=== PATIENT | male | born 1985 | race Caucasian/White ===

== ENCOUNTER 2016-10-01 13:34 | Emergency (ER) | payer OTHER, BC ==
[2016-10-01 13:48] VITALS: BP 125/81; PULSE 64; TEMP 98.3; BMI 26.6
--- NOTE | 2016-10-01 15:12 | PDOC ---
History of Present Illness - General Chief Complaint: Injury Stated Complaint: RT HAND PAIN Time Seen by Provider: 10/01/16 13:54 History Source: Patient Exam Limitations: No Limitations - History of Present Illness Initial Comments: 10/01/16 15:07 31 yr male with right wrist injury after hitting the wrist on the wall 4 days ago. Pt took ibuprofen 3 days ago. No previous history of injury in the past. Severity: reports: mild Upper Extremity Pain Location: right: wrist Method of Injury: reports: direct blow (against a wall ) Past History - Past Medical History Allergies/Adverse Reactions: Allergies Allergy/AdvReac Type Severity Reaction Status Date / Time No Known Allergies Allergy Verified 10/01/16 13:46 Home Medications: Ambulatory Orders Albuterol Sulfate Inhaler - [Ventolin HFA Inhaler -] 1 - 2 inh PO Q4H PRN Asthma: Yes Thyroid Disease: No - Psycho/Social/Smoking Cessation Hx Anxiety: No Suicidal Ideation: No Smoking History: Never smoked Have you smoked in the past 12 months: Yes Number of Cigarettes Smoked Daily: 2 Information on smoking cessation initiated: No 'Breaking Loose' booklet given: 04/19/16 Hx Alcohol Use: No Drug/Substance Use Hx: No Substance Use Type: None Review of Systems - Review of Systems Able to Perform ROS?: Yes Is the patient limited Lithuanian proficient: No Constitutional: No: Symptoms Reported HEENTM: No: Symptoms Reported Respiratory: No: Symptoms reported Cardiac (ROS): No: Symptoms Reported ABD/GI: No: Symptoms Reported : No: Symptoms Reported Musculoskeletal: Yes: See HPI *Physical Exam - Vital Signs Last Vital Signs Temp Pulse Resp BP Pulse Ox 98.3 F 64 18 125/81 100 10/01/16 13:46 10/01/16 13:46 10/01/16 13:46 10/01/16 13:46 10/01/16 13:46 - Physical Exam General Appearance: Yes: Nourished, Appropriately Dressed HEENT: positive: EOMI, MARIA C, Normal ENT Inspection, TMs Normal, Pharynx Normal Neck: positive: Supple. negative: Tender Respiratory/Chest: positive: Lungs Clear, Normal Breath Sounds Cardiovascular: positive: Regular Rhythm, Regular Rate Lymphatic: negative: Adenopathy Musculoskeletal: positive: Normal Inspection Extremity: positive: Normal Capillary Refill, Normal Inspection, Normal Range of Motion, Other (right wrist tender to palpation distal radius , no swelling, no deformity nv intact ) Integumentary: positive: Normal Color, Dry, Warm Neurologic: positive: Fully Oriented, Alert, Normal Mood/Affect, Normal Response , Motor Strength 5/5 Procedures - Splinting Splint Location: Right: Wrist Pre-Proc Neuro Vasc Exam: normal ED Treatment Course - RADIOLOGY Radiology Studies Ordered: Category Date Time Status WRIST W/HAND-RIGHT* [RAD] Stat Radiology 10/01/16 14:10 Completed Medical Decision Making - Medical Decision Making 10/01/16 15:10 cc: right wrist pain after hitting wrist on wall no deformity , nv intact will xray to r/o fracture *DC/Admit/Observation/Transfer Diagnosis at time of Disposition: Right wrist sprain Qualifiers: Encounter type: initial encounter Qualified Code(s): S63.501A - Unspecified sprain of right wrist, initial encounter - Discharge Dispostion Disposition: HOME Condition at time of disposition: Good - Referrals Referrals: Mark Somers MD [Staff Physician] - - Patient Instructions Additional Instructions: use the wrist splint while awake use for the next week follow with the orthopedist for follow up if symptoms worsen or persist take ibuprofen for pain (advil, motrin over the counter) - Post Discharge Activity Work/School Note: Back to Work
== END 2016-10-01 15:26 | disposition home or self-care (01) ==
LOC: JERFT 13:34
PROC: 2W3CX1Z Immobilization of Right Lower Arm using Splint (ICD-10-PCS; principal; 2016-10-01)
DX: S63.501A Unspecified sprain of right wrist, initial encounter (principal); W22.8XXA Striking against or struck by other objects, initial encounter; Y93.89 Activity, other specified; Y92.89 Other specified places as the place of occurrence of the external cause; Y99.8 Other external cause status
CPT/HCPCS: 73110-TC-RT; 73130-TC-RT; 99281-25

== ENCOUNTER 2023-09-19 17:16 | Emergency (ER) | payer BC, OTHER ==
[2023-09-19 17:33] VITALS: BP 135/82; PULSE 74; RESP 18; TEMP 98.5; BMI 28.3
[2023-09-19] MEDS: SODIUM CHLORIDE 0.9% 500 ML INFUS.BAG IV ONE ×2 (18:24→19:05)
[2023-09-19] MEDS ORDERED: ACETAMINOPHEN INJECTION 100 ML IVPB ONE (18:26)
[2023-09-19] MEDS: ACETAMINOPHEN 1000 MG/100 ML BAG IVPB ONE (18:29)
[2023-09-19 18:34] LABS: BASO % 0.4 % (0-2.0); EOS % 5.2 % (0-4.5); HEMOGLOBIN 17.2 GM/dL (11.7-16.9); MCH 28.2 pg (25.7-33.7); MCHC 34.4 g/dl (32.0-35.9); MEAN CELL VOLUME 82.2 fl (80-96); MONO % 8.8 % (3.8-10.2); NEUT % 58.6 % (42.8-82.8); PLATELET COUNT 292 10^3/uL (134-434); RBC 6.08 M/mm3 (4.00-5.60); RDW 13.6 % (11.9-15.9); WHITE BLOOD COUNT 11.1 K/mm3 (4.0-10.0)
[2023-09-19 18:45] LABS: POTASSIUM 3.8 mmol/L (3.5-5.1)
[2023-09-19 18:47] LABS: BLOOD UREA NITROGEN 11.9 mg/dL (7-18); CALCIUM 9.7 mg/dL (8.5-10.1); MAGNESIUM 2.1 mg/dL (1.8-2.4)
[2023-09-19 18:50] LABS: CREATININE 0.9 mg/dL (0.55-1.3)
[2023-09-19 18:52] LABS: BILIRUBIN,TOTAL 0.6 mg/dL (0.2-1); TOT PROT 7.6 g/dl (6.4-8.2)
[2023-09-19] MEDS ORDERED: FAMOTIDINE 20 MG/50 ML IVPB 20 MG/50 ML MG IVPB ONE (19:28)
[2023-09-19] MEDS ORDERED: MAG HYDROX/AL HYDROX/SIMETH -MYLANTA- ORAL SUSPENSION PO ONE (19:28)
[2023-09-19] MEDS ORDERED: ONDANSETRON 4 MG/2 ML VIAL IVPUSH ONE (19:28)
== END 2023-09-19 20:19 | disposition home or self-care (01) ==
LOC: JER 17:16
PROC: 3E033NZ Introduction of Analgesics, Hypnotics, Sedatives into Peripheral Vein, Percutaneous Approach (ICD-10-PCS; principal; 2023-09-19)
DX: R19.7 Diarrhea, unspecified (principal); R42 Dizziness and giddiness; Z20.822 Contact with and (suspected) exposure to COVID-19
CPT/HCPCS: 0241U-QW; 36415; 80053; 83735; 85025; 99284-25; J0131

== ENCOUNTER 2023-10-28 18:35 | Emergency (ER) | payer BC ==
[2023-10-28 18:41] VITALS: BP 138/85; PULSE 78; RESP 18; TEMP 99.1; BMI 29.2
[2023-10-28] MEDS ORDERED: KETOROLAC TROMETHAMINE 30 MG/1 ML VIAL ONE (19:39)
[2023-10-28] MEDS ORDERED: ACETAMINOPHEN 500 MG TABLET (FP) ONE (19:39)
[2023-10-28] MEDS: KETOROLAC TROMETHAMINE 30 MG/1 ML VIAL IM ONE (19:42)
[2023-10-28] MEDS: ACETAMINOPHEN 500 MG TABLET (FP) PO ONE (19:42)
== END 2023-10-28 20:28 | disposition home or self-care (01) ==
LOC: JER 18:35
PROC: 3E0233Z Introduction of Anti-inflammatory into Muscle, Percutaneous Approach (ICD-10-PCS; principal; 2023-10-28)
DX: R50.9 Fever, unspecified (principal); R51.9 Headache, unspecified; R05.9 Cough, unspecified; J02.9 Acute pharyngitis, unspecified
CPT/HCPCS: 87651; 99284-25